=== PATIENT | female | born 1955 | race Caucasian/White ===

== ENCOUNTER → 2017-02-11 | Outpatient (CLI) | payer OTHER ==
[2015-02-26 13:32] VITALS: BP 109/73; PULSE 64
[~2017-02-11] MED LIST: BUPR-79 PO; CHOL1CAP93 PO; CMD/25 PO; DICY10CA12 PO; FLUO20CA35 PO; IMD/2 PO; Iron Supplement PO; LACT10CA3 PO; MAGN250T8 PO; MULT-506 PO; PRLSR20 PO; VALS320T PO; WARF5TAB90 PO; [UNRECOGNIZED DRUG - CODE]; vitamin C PO
[2017-02-11 13:14] VITALS: BP 128/85; PULSE 68; TEMP 37; O2SAT 96
--- NOTE | 2017-02-11 14:31 | Radiation Oncology Follow-Up ---
Radiation Oncology Follow-Up Date of Visit Feb 11, 2017. (Marilu Waldrop PA-C) Reason For Visit Annual follow-up (Marilu Waldrop PA-C) Radiation Completion Date [facility] 06/24/13 (Marilu Waldrop PA-C) Diagnosis (1) Breast cancer Status: Resolved Stage: l Permanent Comment: Right breast, invasive ductal carcinoma, ER/CA positive, Her2 negative, pT1N0, stage IA TREATMENT: lumpectomy followed by [facility] (3850 cGy, BID, 10 fractions, 06/24/2013) Last Edited By: Lauren Jarrett on Feb 26, 2015 15:14 (Marilu Waldrop PA-C) Interim History This is a 61-year-old white female with a history of stage I right breast cancer and is status post lumpectomy and adjuvant radiation therapy completed June 2013. She had been on antiestrogen therapy but was stopped due to side effects. She has noted no masses or tenderness no change of the axilla. She's had no swelling of her arm. She is up-to-date on mammography. 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 She is followed by Dr. Bomwan and has had injections. She is going to be referred for additional injections to C1 and C2 area. She had a mammogram 06/11/2016. There was no evidence of breast malignancy. A diagnostic mammogram was recommended in 12 months. BI- RADS Category 2. (Marilu Waldrop PA-C) Allergies Coded Allergies: Benzoin (Unverified Allergy, Intermediate, skin blistering, 07/19/14) Diltiazem (Verified Allergy, Unknown, UNKNOWN, 07/19/14) Beta Adrenergic Blockers (Verified Adverse Reaction, Unknown, dry cough, ) Home Medications Scheduled Bupropion (Wellbutrin Sr), 150 MG PO DAILY Cholecalciferol (D3-1000), 1,000 UNITS PO DAILY Fluoxetine (Prozac), 20 MG PO DAILY Loperamide Hcl (Imodium), 2 MG PO DIRECTED Magnesium Oxide (Mg Supplement (Magnesium), 1 CAP PO DAILY Multivitamin (Multivitamin), 1 TAB PO DAILY Omeprazole (Prilosec), 20 MG PO DAILY Valsartan (Diovan), 320 MG PO DAILY Warfarin Sod (Coumadin), 1 TAB PO DAILY Warfarin Sodium (Coumadin), 1 TAB PO DAILY [Iron Supplement], 325 MG PO DAILY [vitamin C], 500 MG PO DAILY Scheduled PRN Dicyclomine Hcl (Dicyclomine Hcl), 10 MG PO DAILY PRN for Dyspepsia Lactobacillus-Inulin (Culturelle), 1 CAP PO BID PRN for Diarrhea Miscellaneous Medications Calcium Carbonate-Ergocalcifer (Chewable Calcium/D) Review of Systems Gastrointestinal: Symptoms: WNL Oral: Symptoms: No Problems Respiratory: Symptoms: WNL Urinary: Symptoms: WNL Comments: Worsening urinary leakage with her weight loss Skin: Symptoms: No Problems Breast: Right Upper Arm Measurement: 31.0 Right Mid Arm Measurement: 23.1 Right Wrist Measurement: 15.5 Left Upper Arm Measurement: 32.8 Left Mid Arm Measurement: 24.2 Left Wrist Measurement: 15.8 Arm Dominence: Right (Marilu Waldrop PA-C) Physical Exam Vital Signs Date Time Temp Pulse Resp B/P (MAP) Pulse Ox O2 Delivery O2 Flow Rate FiO2 02/11/17 13:14 37.0 68 16 128/85 96 Pain: Pain Location: None Patient Pain Scale: 0 - 10 Initial Pain Intensity: 0.0 Fatigue: None General Appearance: no apparent distress Eyes: normal inspection, EOMI ENT: normal ENT inspection, hearing grossly normal Neck: no adenopathy, thyroid normal Respiratory/Chest: normal breath sounds, no respiratory distress, no accessory muscle use Breast: Breast examination reveals well-healed incisions of the right breast. There are no masses or tenderness and no axillary adenopathy. There are no skin retractions or nipple changes. There is no telangiectasia. The left pressure no masses or tenderness and no axillary adenopathy. Her pacemaker does appear to be slightly more lateral. She stated the change In with her significant weight loss. This was an intentional weight loss. Cardiovascular: regular rate, rhythm, no gallop, no murmur Abdomen: non tender, soft Extremities: no pedal edema Neurologic/Psychiatric: no motor/sensory deficits, alert, normal mood/affect Skin: warm/dry Lymphatic: no adenopathy (Marilu Waldrop PA-C) Additional Studies Mammography as reviewed above. (Marilu Waldrop PA-C) Assessment & Plan Plan: Patient was also seen today by Dr. Jarrett. She'll continue her regular follow-up with Dr. Delgado and her primary care physician. She is also following for pain management of the arthritis of the neck. We asked her to return to our office in 1 year. She may call if she has any questions or concerns in the interim. (Marilu Waldrop PA-C) I agree with note created by Marilu Waldrop PA-C. I reviewed the patient's chart and information with her. I have examined and evaluated the patient. I reviewed relevant clinical information and answered the patient's and/or family' s questions. (Veeral. Jarrett MD) Total Time In Follow-Up I spent 20 minutes speaking to the patient performing examination. I spent 15 minutes reviewing information and completing this note. AK (Marilu Waldrop PA-C) I spent 15 minutes examining and counseling the patient. (Veeral. Jarrett MD) Copy To Mookie Delgado M.D.; Licha Velazquez D.O.
== END | disposition home or self-care (01) ==
LOC: C.ONC 13:06
PROVIDERS: ATTEND Physician Assistant Medical
DX: Z08 Encounter for follow-up examination after completed treatment for malignant neoplasm (principal); Z92.3 Personal history of irradiation; Z85.3 Personal history of malignant neoplasm of breast

== ENCOUNTER → 2018-02-16 | Outpatient (CLI) | payer OTHER ==
[~2018-02-16] MED LIST changes: +DTR/5 PO; +LOSA50TA6 PO
[2018-02-16 13:02] VITALS: BP 139/98; PULSE 83; TEMP 36.6; O2SAT 98
--- NOTE | 2018-02-16 13:35 | Radiation Oncology Follow-Up ---
Radiation Oncology Follow-Up Date of Visit Feb 16, 2018. Reason For Visit annual follow up Radiation Completion Date 06/24/13 Diagnosis (1) Breast cancer Status: Resolved Stage: l Permanent Comment: Right breast, invasive ductal carcinoma, ER/DC positive, Her2 negative, pT1N0, stage IA TREATMENT: lumpectomy followed by [facility] (3850 cGy, BID, 10 fractions, 06/24/2013) Last Edited By: Lauren Jarrett on Feb 26, 2015 15:14 Interim History She has been doing well over this past year. She denies any changes to her breast. She is noted no masses or tenderness no change of the axilla. She has had no swelling of her arm. She is up-to-date on mammography. She had a mammogram in June. She did receive notification that this was normal. She previously been tried on antiestrogen therapy. She did not tolerate the medication. Allergies Coded Allergies: Benzoin (Unverified Allergy, Intermediate, skin blistering, 07/19/14) Diltiazem (Verified Allergy, Unknown, UNKNOWN, 07/19/14) Beta Adrenergic Blockers (Verified Adverse Reaction, Unknown, dry cough, ) Home Medications Scheduled Bupropion (Wellbutrin Sr), 150 MG PO DAILY Cholecalciferol (D3-1000), 1,000 UNITS PO DAILY Fluoxetine (Prozac), 20 MG PO DAILY Losartan Potassium (Cozaar), 1 TAB PO DAILY Magnesium Oxide (Mg Supplement (Magnesium), 1 CAP PO DAILY Multivitamin (Multivitamin), 1 TAB PO DAILY Omeprazole (Prilosec), 20 MG PO DAILY Oxybutynin Chloride (Ditropan), 5 MG PO TID Warfarin Sod (Coumadin), 1 TAB PO DAILY Warfarin Sodium (Coumadin), 1 TAB PO DAILY [Iron Supplement], 325 MG PO DAILY [vitamin C], 500 MG PO DAILY Scheduled PRN Dicyclomine Hcl (Dicyclomine Hcl), 10 MG PO DAILY PRN for Dyspepsia Lactobacillus-Inulin (Culturelle), 1 CAP PO BID PRN for Diarrhea Miscellaneous Medications Calcium Carbonate-Ergocalcifer (Chewable Calcium/D) Review of Systems Gastrointestinal: Symptoms: WNL Oral: Symptoms: No Problems Respiratory: Symptoms: WNL Urinary: Symptoms: WNL Comments: Worsening urinary leakage with her weight loss Skin: Symptoms: No Problems Breast: Right Upper Arm Measurement: 35.5 Right Mid Arm Measurement: 25.0 Right Wrist Measurement: 16.0 Left Upper Arm Measurement: 35.0 Left Mid Arm Measurement: 25.5 Left Wrist Measurement: 16.0 Arm Dominence: Right Physical Exam Vital Signs Date Time Temp Pulse Resp B/P (MAP) Pulse Ox O2 Delivery O2 Flow Rate FiO2 02/16/18 13:02 36.6 83 20 139/98 98 Fatigue: None General Appearance: no apparent distress Eyes: normal inspection, EOMI ENT: normal ENT inspection, hearing grossly normal Neck: no adenopathy, thyroid normal Respiratory/Chest: lungs clear, no respiratory distress, no accessory muscle use Breast: Breast examination reveals well-healed incisions of the right breast. There are fibrous changes below the incision line. There are no masses or tenderness and no axillary adenopathy. She has no skin retractions or nipple changes. Using the [place] score cosmesis she has a good outcome. The left breast showed no masses or tenderness and no axillary adenopathy. Cardiovascular: regular rate, rhythm, no gallop, no murmur, + pertinent finding (Pacemaker is palpable in the upper left anterior chest.) Abdomen: non tender, soft, no organomegaly Extremities: no pedal edema Neurologic/Psychiatric: no motor/sensory deficits, alert, normal mood/affect Pain Management Patient Reports Pain: No Pain Location: None Patient Preferred Pain Scale: 0 - 10 Initial Pain Intensity: 0.0 Pain Management Plan She denies pain therefore requires no pain management Laboratory Laboratory Results: not applicable Pathology Pathology Results: not applicable Imaging Imaging Studies: were reviewed, and pertinent findings noted below Imaging Comments She had a mammogram at [facility] June 17, 2017. There was no evidence of breast malignancy. A diagnostic mammogram is recommended in 12 months. BI- RADS Category 2. Assessment & Plan Plan: Continue regular follow-up with her primary care physician and breast surgeon. She will now going to be following with Dr. Neeta Silverio. She plans to make an appointment for June. She will also have a recheck mammogram in June and this is scheduled. We discussed follow-up. A follow-up appointment with our office was not given. She may call if she has any questions or concerns we be happy to see her as needed. Total Time In Follow-Up I spent 20 minutes speaking to the patient in performing examination. I spent 15 minutes reviewing information and completing this note. AK
== END | disposition home or self-care (01) ==
LOC: C.ONC 12:41
PROVIDERS: ATTEND Physician Assistant Medical
DX: Z08 Encounter for follow-up examination after completed treatment for malignant neoplasm (principal); Z92.3 Personal history of irradiation; Z85.3 Personal history of malignant neoplasm of breast